=== PATIENT | female | born 1950 ===

== ENCOUNTER 2022-05-03 16:41 | Emergency (ER) | payer OTHER ==
[~2022-05-03] VITALS: Ht 162.6 cm; Wt 70.4 kg
[2022-05-03] MEDS ORDERED: EPINEPHrine 1:10,000 [1 MG/10 ML] SYRINGE IVP ONE ×2 (16:45)
[2022-05-03] MEDS ORDERED: SODIUM BICARBONATE [ADULT] 8.4% 50 MEQ/50 ML SYRINGE IVP ONE ×3 (16:45→19:45)
[2022-05-03] MEDS ORDERED: DEXTROSE 50%-WATER 25 GM/50 ML SYRINGE IVP ONE ×2 (16:45→19:00)
[2022-05-03] MEDS ORDERED: CALCIUM CHLORIDE 100 MG/ML 10 ML SYRINGE IVP ONE ×2 (16:45→20:30)
[2022-05-03] MEDS ORDERED: ATROPINE SULFATE 0.1 MG/ML 10 ML SYRINGE IVP ONE ×2 (17:05→17:30)
[2022-05-03] MEDS ORDERED: DOPamine 400MG/D5W[STANDARD] 250 ML IV ONE (17:08)
[2022-05-03] MEDS ORDERED: 0.9% SODIUM CHLORIDE 10 ML SYRINGE IVP PRN (17:15)
[2022-05-03] MEDS ORDERED: SODIUM CHLORIDE 0.9% 2,100 ML IV ONE ×2 (17:15→19:00)
[2022-05-03 17:18] LABS: HEMATOCRIT 30.9 % (36-46); HEMOGLOBIN 9.2 g/dL (12.0-16.0); MEAN CORPUSCULAR HEMOGLOBIN 24.9 pg (26.0-34.0); MEAN CORPUSCULAR HGB CONC 29.8 G/dL (31.0-37.0); MEAN CORPUSCULAR VOLUME 84 fL (80-100); RED CELL DISTRIBUTION WIDTH 15.3 % (11.5-14.5)
[2022-05-03] MEDS ORDERED: DOPamine 400MG/D5W[STANDARD] 250 ML IV PRN (17:30)
[2022-05-03] MEDS ORDERED: PHENYLEPHRINE 200 MG/D5%-WATER 250 ML IV PRN ×2 (17:30→20:45)
[2022-05-03 17:48] LABS: INR 1.7 (0.9-1.1); PROTHROMBIN TIME 17.5 SEC (9.4-11.6)
[2022-05-03 17:51] LABS: ALANINE AMINOTRANSFERASE 118 U/L (12-78); ALBUMIN 2.8 g/dL (3.4-5.0); ALKALINE PHOSPHATASE 158 U/L (46-116); ANION GAP 21 mmol/L (8-16); ASPARTATE AMINOTRANSFERASE 173 U/L (15-37); BILIRUBIN,TOTAL 1.3 mg/dL (0.1-1.0); CALCIUM, TOTAL 7.8 mg/dL (8.8-10.5); CARBON DIOXIDE 15 mmol/L (22-29); CHLORIDE 99 mmol/L (98-107); CREATININE 3.62 mg/dL (0.60-1.30); POTASSIUM 5.5 mmol/L (3.5-5.1); SODIUM SERUM 135 mmol/L (136-145); TOTAL PROTEIN, SERUM 6.2 g/dL (6.4-8.2); UREA NITROGEN, BLOOD 46 mg/dL (7-18)
[2022-05-03 17:57] LABS: GLOMERULAR FILTR. RATE CALC 12 mL/min (>60); GLUCOSE,RANDOM 20 mg/dL (70-110)
[2022-05-03 17:58] LABS: LACTIC ACID 13.8 mmol/L (0.4-2.0)
[2022-05-03 18:10] LABS: PLATELET COUNT (AUTO) 61 K/uL (150-450)
[2022-05-03 18:21] LABS: BAND NEUTROPHILS % (MANUAL) 30 % (0-5); LYMPHOCYTES % (MANUAL) 10 % (22-44); METAMYELOCYTES % 3 % (0-0); MONOCYTES % (MANUAL) 5 % (2-9); MYELOCYTES % 1 % (0-0); SEGMENTED NEUTROPHILS % 51 % (40-70)
[2022-05-03] MEDS ORDERED: PIPERACILLIN/TAZO 3.375 GM/D5W 50 ML IV ONE (19:00)
[2022-05-03] MEDS ORDERED: NOREPINEPHRINE 8 MG/D5%-WATER 250 ML IV PRN ×2 (19:15→20:45)
[2022-05-03 19:16] LABS: ABG BASE EXCESS -21.6 mmol/L (-2.0-3.0); ABG CARBOXYHEMOGLOBIN 0.3 % (0.0-1.5); ABG METHEMOGLOBIN 0.6 % (0.0-1.5); ABG OXYGEN CONTENT 14.1 mL/dL (15.0-23.0); ABG OXYGEN SATURATION 99.2 % (95.0-98.0); ABG OXYHEMOGLOBIN 98.3 % (94.0-100.0); ABG PCO2 60 mmHg (35-45); ABG TOTAL HEMOGLOBIN 9.5 G/dL (12.0-18.0); SOURCE, BLOOD GAS ARTERIAL; TEMPERATURE, FAHRENHEIT, BG 97.5 FAHREN (96.0-98.6)
[2022-05-03] MEDS ORDERED: CALCIUM GLUCONATE 100 MG/ML 10 ML IVP ONE (19:45)
[2022-05-03 19:48] LABS: PROTHROMBIN TIME 20.3 SEC (9.4-11.6)
[2022-05-03] MEDS ORDERED: INSULIN LISPRO 100 UNITS/ML SQ PRN (20:45)
[2022-05-03] MEDS ORDERED: DEXTROSE 50%-WATER 25 GM/50 ML SYRINGE IVP PRN ×2 (20:45→21:15)
[2022-05-03] MEDS ORDERED: VASOPRESSIN 40 UNITS in DEXTROSE 5%-WATER 98 ML IV PRN (20:45)
[2022-05-03] MEDS ORDERED: ACETAMINOPHEN 325 MG TABLET PO PRN (20:45)
[2022-05-03] MEDS ORDERED: RINGERS SOLUTION,LACTATED 1,000 ML IV ONE (20:45)
[2022-05-03] MEDS ORDERED: RINGERS SOLUTION,LACTATED 1,000 ML IV SCH (20:45)
[2022-05-03] MEDS ORDERED: *CLINICAL-CEFEPIME DOSING CLINICAL ONE (20:45)
[2022-05-03] MEDS ORDERED: ONDANSETRON HCL 4 MG/2 ML VIAL IVP PRN (20:45)
[2022-05-03 20:47] LABS: ABG HCO3 8.8 mmol/L (22.0-26.0); ABG PH 6.897 (7.35-7.450); O2 DEVICE,BLOOD GAS VENTILATOR (ROOM AIR); SITE, BLOOD GAS LFT RADIAL
[2022-05-03 20:48] LABS: PEEP,BG 5 cm H2O; VT, ABG 450 ml
[2022-05-03] MEDS ORDERED: CEFEPIME HCL 0.5 GM in DEXTROSE 5%-WATER 50 ML IV ONE (21:00)
[2022-05-03] MEDS ORDERED: VANCOMYCIN HCL 1.5 GM in DEXTROSE 5%-WATER 250 ML IV ONE (21:00)
[2022-05-03] MEDS ORDERED: SODIUM BICARBONATE 100 MEQ in DEXTROSE 5%-WATER 1,000 ML IV SCH (21:00)
[2022-05-03 21:33] VITALS: BP 111/73
[2022-05-03 21:58] LABS: % IRON SATURATION 10.5 % (22-44)
[2022-05-03] MEDS ORDERED: VANCOMYCIN 1GM/WATER(PEG/NADA) 200 ML IV PRN (22:00)
[2022-05-03] MEDS ORDERED: SODIUM BICARBONATE 150 MEQ in DEXTROSE 5%-0.45% SODIUM CHL 1,000 ML IV ONE (22:30)
[2022-05-03] MEDS ORDERED: CALCIUM GLUCONATE 100 MG/ML 10 ML IVP SCH (23:00)
[2022-05-04] MEDS ORDERED: CEFEPIME HCL 0.5 GM in DEXTROSE 5%-WATER 50 ML IV SCH (22:00)
[2022-05-05] MEDS ORDERED: HEPARIN SODIUM,PORCINE 5,000 UNITS/ML VIAL SQ SCH
== END 2022-05-04 01:43 ==
LOC: EMS 16:44
DX: I46.9 Cardiac arrest, cause unspecified (principal); A41.9 Sepsis, unspecified organism
CPT/HCPCS: 80053; 83540; 83550; 83605; 85025; 85045; 85610; 87040; 87205; 86850; 86900; 86901; 36415; 87077; 82805; 92950; 94002; 36600; 71045; 74018; 93005; 96365; 96366; 96375; 31500; 99291; J0461; J0692; J1265; J0171; J3490 ×4; J2543; J3370; Q9967; J7060 ×4; X7700; J7120; J7030; J2370